=== PATIENT | male | born 1985 | race Caucasian/White ===

== ENCOUNTER → 2025-01-12 | Outpatient (REF) | payer OTHER | LOC: WCC 14:59 | PROVIDERS: ATTEND Internal Medicine Infectious Disease | DX: T81.89XA Other complications of procedures, not elsewhere classified, initial encounter (principal) ==

== ENCOUNTER → 2025-01-19 | Outpatient (REF) | payer OTHER | LOC: WCC 16:08 | PROVIDERS: ATTEND Internal Medicine Infectious Disease | DX: T81.89XA Other complications of procedures, not elsewhere classified, initial encounter (principal) ==

== ENCOUNTER → 2025-01-23 | Outpatient (REF) | payer OTHER | LOC: WCC 12:05 | PROVIDERS: ATTEND Internal Medicine Infectious Disease | DX: T81.89XA Other complications of procedures, not elsewhere classified, initial encounter (principal) ==

== ENCOUNTER → 2025-02-02 | Outpatient (REF) | payer OTHER | LOC: WCC 14:39 | PROVIDERS: ATTEND Internal Medicine Infectious Disease | DX: T81.89XA Other complications of procedures, not elsewhere classified, initial encounter (principal) ==

== ENCOUNTER → 2025-02-09 | Outpatient (REF) | payer OTHER | LOC: WCC 14:30 | PROVIDERS: ATTEND Internal Medicine Infectious Disease | DX: T81.89XA Other complications of procedures, not elsewhere classified, initial encounter (principal) ==

== ENCOUNTER → 2025-02-16 | Outpatient (REF) | payer OTHER | LOC: WCC 15:22 | PROVIDERS: ATTEND Internal Medicine Infectious Disease | DX: T81.89XA Other complications of procedures, not elsewhere classified, initial encounter (principal) ==

== ENCOUNTER → 2025-03-02 | Outpatient (REF) | payer OTHER | LOC: WCC 15:20 | PROVIDERS: ATTEND Internal Medicine Infectious Disease | DX: T81.89XA Other complications of procedures, not elsewhere classified, initial encounter (principal) ==

== ENCOUNTER → 2025-03-16 | Outpatient (REF) | payer OTHER | LOC: WCC 15:30 | PROVIDERS: ATTEND Internal Medicine Infectious Disease | DX: T81.89XA Other complications of procedures, not elsewhere classified, initial encounter (principal) ==